=== PATIENT | female | born 1995 | race Two or more races ===

== ENCOUNTER 2016-07-10 15:58 | Inpatient (IN) | payer OTHER ==
--- NOTE | ~2016-07-10 | EKG ---
PATIENT: LILLY POSADAS UNIT #: [id number] Ventricular Rate: 112 BPM Atrial Rate: 112 BPM P-R Interval: 132 ms QRS Duration: 68 ms Q-T Interval: 302 ms QTC Calculation(Bezet): 412 ms P Moran: 57 degrees Calculated R Moran: 29 degrees Calculated T Moran: 16 degrees Diagnosis Line: Sinus tachycardia Diagnosis Line: Otherwise normal ECG Diagnosis Line: When compared with ECG of 05-JUN-2016 14:32, Diagnosis Line: No significant change was found Diagnosis Line: Confirmed by MACO GRIJALVA MD ([id number]) on Diagnosis Line: 07/12/2016 2:28:19 PM INTERPRETING MD: RUDI LUCIA
--- NOTE | ~2016-07-10 | CR63 ---
[facility] A Service of [facility] RADIOLOGY TEXT RESULTS PATIENT: LILLY POSADAS LOCATION: [facility] 473- : 95 UNIT #: [id number] AGE: [address]: Sherie Payton MD SEX: F ORDER DR: [id number] [id number] I MR#: [id number] Acc #: [id number] NAME: LILLY POSADAS : 1995 SEX: F STUDY DATE/TIME: 07/10/2016 20:03 UNIT: SEDOF ROOM: [facility] STUDY DESCRIPTION: CR Chest 2 View Attending Physician: Shelly Barrera M.D. Ordering Physician: Xochitl Sosa A.P.R.N. Primary Care Physician: Primary Care Physician No MEDICAL IMAGING REPORT This report is preliminary unless electronic signature is present. EXAM Chest x-ray HISTORY Fever, cough, congestion, chest pain for the past 2 days. TECHNIQUE 2 views of the chest were obtained. FINDINGS Bony structures are unremarkable. The heart and mediastinum have a normal configuration. The left lung is clear. There is an infiltrate anteriorly in the right upper lobe. Given the history this likely represents pneumonia. No pleural fluid is seen. Vascular markings are normal. IMPRESSION Infiltrate noted anterior segment right upper lobe consistent with pneumonia. Recommend radiographic followup until healing and clearing. The left lung is clear. Dictated by... Duglas Villela M.D. THIS IS AN ELECTRONICALLY VERIFIED REPORT Duglas Villela M.D. at 07/12/2016 11:02 AM RLF/jas TD: 07/11/2016 11:27 JOB #: [id number] [facility] A Service of [facility] RADIOLOGY TEXT RESULTS PATIENT: LILLY POSADAS LOCATION: [facility] : 95 UNIT #: [id number] AGE: [address]: Sherie Payton MD SEX: F ORDER DR: MEDICAL IMAGING REPORT Page 1 of 1
--- NOTE | ~2016-07-10 | HP ---
Unit #: [id number] #: [id number] Patient: LILLY POSADAS [id number] [address] [address] [id number] I MR#: [id number] NAME: LILLY POSADAS ROOM: [facility] Age: 20 Sex: F Admission Date: 07/11/2016 : 1995 Attending Physician: Sherie Payton M.D. Primary Care Physician: No Primary Care Physician HISTORY AND PHYSICAL CHIEF COMPLAINT Pneumonia. HISTORY This pleasant 20-year-old female with SLE was transferred from [facility] for pneumonia. The patient states that she was well until 3 days prior to admission when she developed a headache, upper respiratory tract symptoms of head congestion and stopped up ears. Then began to experience a deep cough productive of green sputum, right pleuritic chest pain, mild shortness of breath and fevers. Nausea and vomiting yesterday. She was seen at [facility] ER where a chest x-ray does show right upper lobe pneumonia. She was treated with Motrin, Phenergan, Tylenol, bolused with IV fluids, given Rocephin, and Zithromax was planned. She has not been admitted for the past 3 months. She does, however, take CellCept for her lupus. PAST MEDICAL HISTORY 1. Admission for hypotension 04/12/2016 possibly related to infectious etiology of uncertain source or adrenal insufficiency. The patient had stopped taking her prednisone around that time. 2. 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 The patient takes CellCept. She no longer takes prednisone. 3. Admission to [facility] 02/2016 for GC bacteremia, lupus flare, acute on chronic kidney disease. 4. Chronic anemia. ALLERGIES None. HOME MEDICATIONS Iron, vitamin D, CellCept 500 mg 2 tablets b.i.d. FAMILY HISTORY Negative for lupus. SOCIAL HISTORY The patient lives with her mother. She is a lifelong nonsmoker. Does not drink alcohol or use illicit drugs. States that her last menstrual period was 3 years ago. REVIEW OF SYSTEMS Unit #: [id number] #: [id number] Patient: LILLY POSADAS Nausea, vomiting, cough, upper respiratory symptoms, SLE and above-mentioned complications, chronic anemia. All other systems were reviewed and are negative. PHYSICAL EXAMINATION GENERAL: Pleasant, 20-year-old female who is somewhat ill appearing. VITAL SIGNS: Temperature 98.3, pulse 107, respirations 16, blood pressure 133/82, O2 saturation 97% on room air. HEENT: Eyes-PERRLA. Extraocular muscles are intact. Pharynx is benign. NECK: Supple without adenopathy or thyromegaly. CHEST: Fairly clear. CARDIAC: Slightly tachy. S1, S2, without S3, S4 or murmur. ABDOMEN: Bowel sounds are present. No hepatosplenomegaly, tenderness or masses. EXTREMITIES: Without edema. SKIN: Skin reveals somewhat raised erythematous rash, particularly over the malar junction and cheeks bilaterally and over the hands. This rash is actually improved from when I saw the patient in March. NEUROLOGIC: The patient is awake, alert, oriented. Cranial nerves are intact. Equal strength throughout. DIAGNOSTIC STUDIES ADMISSION LABS: Hematocrit is 25.1, which is fairly stable. Normal MCV, white count. Platelet count is 122. SMA-12 - CO2 21, calcium 7, protein 5.9, albumin 2.8. Beta HCG negative. Influenza serology, strep screen negative. Urinalysis - 1+ leukocyte esterase, 10-25 red cells, 50-100 white cells, moderate squamous epithelial cells, making this a poor specimen. IMAGING: Chest x-ray - Right upper lobe pneumonia. ASSESSMENT 1. Pneumonia in this patient who is somewhat immunocompromised. 2. Sinus tachycardia due to illness. 3. SLE with polyarthritis, cutaneous vasculitis and lupus nephritis, on CellCept. 4. Questionable UTI. PLANS 1. Cefepime and Levaquin, given that the patient is immunocompromised. Will give one dose of vancomycin pending cultures. 2. Florastor. 3. IV fluids and supportive treatment. 4. SCDs for DVT prophylaxis. 5. Hold CellCept while acutely ill. Dictated by Shelly Barrera M.D. AML/db TD: 07/11/2016 10:14 JOB #: [id number] Unit #: [id number] #: [id number] Patient: LILLY POSADAS HISTORY AND PHYSICAL X Shelly Barrera MD X HISTORY AND PHYSICAL
--- NOTE | ~2016-07-10 | DS ---
Unit #: [id number] #: [id number] Patient: LILLY POSADAS [id number] [address] [address] [id number] Maxi MR#: [id number] NAME: LILLY POSADAS ROOM: [facility] Age: 20 Sex: F Admission Date: 07/11/2016 : 1995 Discharge Date: 07/13/2016 Attending Physician: Sherie Payton M.D. Primary Care Physician: Primary Care Physician No DISCHARGE SUMMARY PRINCIPAL DIAGNOSES 1. Right upper lobe pneumonia. 2. Mild hypocalcemia. 3. Persistent sinus tachycardia with normal TSH. 4. Systemic lupus erythematosus with history of lupus vasculitis and lupus nephritis. 5. Chronic immunosuppression. 6. Chronic thrombocytopenia. 7. Acute on chronic iron deficiency anemia. Discharge hemoglobin 8.0. 8. Moderate protein malnutrition. CONSULTANTS None. PROCEDURES Chest x-ray on 07/10/2016 with infiltrate in the right upper lobe consistent with pneumonia. CLINICAL HISTORY AND HOSPITAL COURSE Ms. Posadas is a very nice 20-year-old female, who presents to emergency department with cough and shortness of breath. She also having nausea and vomiting. Chest x-ray revealed right upper lobe pneumonia. The patient was subsequently admitted. Due to patient's recurrent hospitalizations and chronic immunosuppression, she was given a single dose of vancomycin in addition to be continued on Levaquin and cefepime. She clinically improved over the next several days. All associated elevated temperatures resolved and cough improved. Physical exam also improved. No causative organism was obtained. I am going to continue her on empiric Levaquin upon discharge for another 7 days. I reinitiate immunosuppression. The patient was found to be mildly hypocalcemic and I will place her on calcium supplementation upon discharge. The patient had persistent sinus tachycardia. I have seen the patient in the past and she also had sinus tachycardia at that time and we are going to place her on a low-dose of metoprolol, which she will continue as an outpatient and she is agreeable. The patient also has chronic iron deficiency anemia, but hemoglobin here is overall remained stable. I am going to maintain her iron supplementation upon discharge. Unit #: [id number] #: [id number] Patient: LILLY POSADAS DISCHARGE CONDITION Stable. DISCHARGE STATUS Discharged to home. DISCHARGE MEDICATIONS Levaquin 750 mg p.o. for another one week, Flonase 0.05% nasal spray two sprays per nostril daily, metoprolol tartrate 25 mg b.i.d. with 2 refills given; ferrous gluconate 324 mg p.o. daily with 1 refill given, CellCept 500 mg two tablets b.i.d., Os-Jose 500+ D one tablet b.i.d., vitamin D at home dose. DISCHARGE INSTRUCTIONS The patient was instructed to follow regular diet. She can increase her activity as tolerated. FOLLOWUP The patient will follow up with her primary care physician in 1 week. Of course, she can call me if she develops any fever, worsening cough, following discharge. Dictated by... Sherie Payton M.D. FLOR/vikram TD: 07/14/2016 00:57 JOB #: [id number] DISCHARGE SUMMARY Page 1 of 1 X Sherie Payton MD X DISCHARGE SUMMARY
[~2016-07-10 15:58] MED LIST: ANTIVERT PO; ATARAX PO; CELLCEPT250 MG PO; CELLCEPT500 MG PO; FERRO-TIME325 MG PO; IMPLANON; IMPLANON68 MG/IMPL SQ; IRON1 TA1 PO; IRON1 TAB PO; MEDROL4 MG/DOSE- PO; PLAQUENIL200 MG PO; TRIAMCINOLONE AC1 GM TOP; TYLENOL #3 PO; VITAMIN D1000 UNI2 PO; VOLTAREN50 MG PO
[2016-07-10 16:06] LABS: URINE SOURCE CLEAN CATCH
[2016-07-10 16:08] LABS: INFLUENZA A NEG (NEG); INFLUENZA B NEG (NEG)
[2016-07-10 16:08] LABS: URINE APPEARANCE CLEAR; URINE BILIRUBIN NEG (NEG); URINE BLOOD 2+ (NEG); URINE COLOR YELLOW; URINE GLUCOSE NEG (NORM); URINE KETONE NEG (NEG); URINE LEUKOCYTE ESTERASE 1+ (NEG); URINE NITRATE NEG (NEG); URINE PH 7.5 (5-8); URINE PROTEIN 2+ (NEG); URINE UROBILINOGEN 0.2 MG/DL (NORM)
[2016-07-10 16:13] LABS: MICRO INDICATED? YES
[2016-07-10 16:15] LABS: CULTURE INDICATED? YES; URINE BACTERIA NEG (NEG); URINE SQUAMOUS EPITHELIAL CELL MODERATE /[HPF]; URINE WBC 50-100 /[HPF] (0-5)
[2016-07-10 20:42] LABS: BASOPHIL% 0.4 % (0-2.5); HEMATOCRIT 25.1 % (35.0-45.0); HEMOGLOBIN 8.3 gm/dL (12.0-16.0); LYMPHOCYTE# 0.8 X10e3 (1.0-3.5); LYMPHOCYTE% 13.1 % (17.0-45.0); MEAN CELL VOLUME 83.3 FL (83-96); MEAN CORPUSCULAR HEMOGLOBIN 27.6 PG (28-34); MEAN CORPUSCULAR HGB CONC 33.1 g/dL (30-36); MEAN PLATELET VOLUME 9.1 FL (6.5-11.5); MONOCYTE# 0.2 X10e3 (0-1.0); MONOCYTE% 2.5 % (3.0-12.0); NEUTROPHIL# 5.4 X10e3 (1.5-7.1); PLATELET COUNT 122 X10e3 (140-420); RED BLOOD COUNT 3.02 X10e (3.90-5.30); RED CELL DISTRIBUTION WIDTH 17.1 % (11.0-15.5); WHITE BLOOD COUNT 6.5 X10e3 (4.0-10.5)
[2016-07-10 20:44] LABS: DIFF IND NO
[2016-07-10 20:58] LABS: ALBUMIN SERUM 2.8 g/dL (3.5-5.0); ALKALINE PHOSPHATASE 48 U/L (32-92); ALT (SGPT) 8 U/L (10-40); AST (SGOT) 18 U/L (10-42); BILIRUBIN,TOTAL 0.5 mg/dL (0.2-2.0); BLOOD UREA NITROGEN 11 mg/dL (9-23); BUN/CREATININE RATIO 12.22; CARBON DIOXIDE 21 mmol/L (22-31); CHLORIDE 109 mmol/L (100-111); CREATININE SERUM 0.9 mg/dL (0.6-1.4); GLOM FILT RATE Estimated ABOVE60 mL/min (>60); GLUCOSE FASTING 108 mg/dL (70-110); POTASSIUM 3.7 mmol/L (3.5-5.1); PROTEIN TOTAL SERUM 5.9 g/dL (6.0-8.3); SODIUM 136 mmol/L (135-145)
[2016-07-11 03:25] LABS: BASOPHIL% 0.2 % (0-2.5); HEMOGLOBIN 8.1 gm/dL (12.0-16.0); LYMPHOCYTE# 0.5 X10e3 (1.0-3.5); LYMPHOCYTE% 9.5 % (17.0-45.0); MEAN CELL VOLUME 84.1 FL (83-96); MEAN CORPUSCULAR HEMOGLOBIN 28.2 PG (28-34); MEAN CORPUSCULAR HGB CONC 33.5 g/dL (30-36); MEAN PLATELET VOLUME 9.5 FL (6.5-11.5); MONOCYTE# 0.2 X10e3 (0-1.0); MONOCYTE% 3.3 % (3.0-12.0); NEUTROPHIL# 4.7 X10e3 (1.5-7.1); PLATELET COUNT 103 X10e3 (140-420); RED BLOOD COUNT 2.86 X10e (3.90-5.30); RED CELL DISTRIBUTION WIDTH 17.1 % (11.0-15.5); WHITE BLOOD COUNT 5.5 X10e3 (4.0-10.5)
[2016-07-11 03:26] LABS: DIFF IND NO
[2016-07-11 03:55] LABS: BLOOD UREA NITROGEN 14 mg/dL (9-23); CALCIUM SERUM 6.8 mg/dL (8.4-10.2); CARBON DIOXIDE 20 mmol/L (22-31); CHLORIDE 112 mmol/L (100-111); CREATININE SERUM 0.8 mg/dL (0.6-1.4); GLOM FILT RATE Estimated ABOVE60 mL/min (>60); GLUCOSE FASTING 95 mg/dL (70-110); POTASSIUM 3.8 mmol/L (3.5-5.1); SODIUM 137 mmol/L (135-145)
[2016-07-12 04:37] LABS: HEMATOCRIT 23.1 % (35.0-45.0); HEMOGLOBIN 7.6 gm/dL (12.0-16.0); MEAN CELL VOLUME 84.1 FL (83-96); MEAN CORPUSCULAR HEMOGLOBIN 27.6 PG (28-34); MEAN CORPUSCULAR HGB CONC 32.8 g/dL (30-36); MEAN PLATELET VOLUME 9.1 FL (6.5-11.5); RED BLOOD COUNT 2.75 X10e (3.90-5.30); RED CELL DISTRIBUTION WIDTH 17.4 % (11.0-15.5); WHITE BLOOD COUNT 7.9 X10e3 (4.0-10.5)
[2016-07-12 04:54] LABS: BLOOD UREA NITROGEN 11 mg/dL (9-23); BUN/CREATININE RATIO 13.75; CREATININE SERUM 0.8 mg/dL (0.6-1.4); GLOM FILT RATE Estimated ABOVE60 mL/min (>60); GLUCOSE FASTING 83 mg/dL (70-110)
[2016-07-12 04:55] LABS: CALCIUM SERUM 7.3 mg/dL (8.4-10.2); CARBON DIOXIDE 21 mmol/L (22-31); CHLORIDE 116 mmol/L (100-111); POTASSIUM 3.6 mmol/L (3.5-5.1); SODIUM 135 mmol/L (135-145)
[2016-07-12 09:27] LABS: PROCALCITONIN 8.61 NG/ML
[2016-07-13 03:47] LABS: BASOPHIL% 0.4 % (0-2.5); EOSINOPHIL% 0.1 % (0.0-7.0); HEMATOCRIT 24.4 % (35.0-45.0); LYMPHOCYTE# 1.5 X10e3 (1.0-3.5); MEAN CELL VOLUME 84.7 FL (83-96); MEAN CORPUSCULAR HEMOGLOBIN 27.7 PG (28-34); MEAN CORPUSCULAR HGB CONC 32.7 g/dL (30-36); MEAN PLATELET VOLUME 9.1 FL (6.5-11.5); MONOCYTE# 0.3 X10e3 (0-1.0); MONOCYTE% 6.8 % (3.0-12.0); NEUTROPHIL# 3.2 X10e3 (1.5-7.1); NEUTROPHIL% 63.7 % (40-75); PLATELET COUNT 130 X10e3 (140-420); RED BLOOD COUNT 2.89 X10e (3.90-5.30); RED CELL DISTRIBUTION WIDTH 17.4 % (11.0-15.5)
[2016-07-13 03:48] LABS: DIFF IND NO
[2016-07-13] MEDS ORDERED: CALCIUM 500 +1 EAC5 PO (09:02)
[2016-07-13] MEDS ORDERED: FLONASE 0.05% N16 G1 (09:04)
[2016-07-13] MEDS ORDERED: LEVAQUIN750 M1 PO (09:05)
[2016-07-13] MEDS ORDERED: LOPRESSOR PO (09:05)
== END 2016-07-13 11:57 | disposition home or self-care (01) | DRG 194 ==
LOC: SED 15:58 → C4C 07-11 00:20
PROVIDERS: Emergency Medicine; Internal Medicine; Nurse Practitioner
DX: J18.9 Pneumonia, unspecified organism (principal); E44.0 Moderate protein-calorie malnutrition; M32.14 Glomerular disease in systemic lupus erythematosus; D69.6 Thrombocytopenia, unspecified; M32.9 Systemic lupus erythematosus, unspecified; E83.51 Hypocalcemia; R00.0 Tachycardia, unspecified; L95.9 Vasculitis limited to the skin, unspecified; D50.9 Iron deficiency anemia, unspecified; Z79.899 Other long term (current) drug therapy
CPT/HCPCS: 36415; 71020; 80048; 80053; 81003; 82308; 82607; 83540; 83550; 83605; 84443; 84703; 85025; 85027; 87086; 87651; 87804; 93005; 96361; 96365; 99285; J0456; J0610; J0692; J0696; J1956; J2405; J2550; J3370

== ENCOUNTER 2017-01-07 08:41 | Inpatient (IN) | payer OTHER ==
[~2017-01-07] VITALS: Ht 154.9 cm; Wt 68.4 kg
--- NOTE | ~2017-01-07 | US6 ---
[facility] A Service of [facility] RADIOLOGY TEXT RESULTS PATIENT: LILLY POSADAS LOCATION: [facility] 568-01 : 95 UNIT #: [id number] AGE: [address]: Oralia Davila MD SEX: F ORDER DR: [id number] [place], [place] [address] [id number] I MR#: [id number] Acc #: [id number] NAME: LILLY POSADAS : 1995 SEX: F STUDY DATE/TIME: 01/08/2017 10:13 UNIT: [facility] ROOM: [facility] STUDY DESCRIPTION: US Abdominal Limited Attending Physician: Oralia Davila M.D. Ordering Physician: Oralia Davila M.D. Primary Care Physician: Primary Care Physician No MEDICAL IMAGING REPORT This report is preliminary unless electronic signature is present EXAM Right upper quadrant ultrasound 01/08/2017 INDICATION Hepatitis, midline abdominal pain 2 days. TECHNIQUE Sonographic imaging of the right upper quadrant was performed. Correlation is made with CT 01/07/2017. FINDINGS Visualized pancreas unremarkable. There is perihepatic ascites. Periportal edema demonstrated on prior CT not well delineated on ultrasound. No focal liver mass or distinct intrahepatic ductal dilatation. The right kidney is nonobstructed measuring 12.6 cm long axis. There is cholelithiasis, the largest stone within the gallbladder measures up to about 2.8 cm. The gallbladder demonstrates borderline wall thickness at 3-[address] imaging findings of periportal edema suggestive of hepatitis, this could also account for the borderline gallbladder wall thickening. No sonographic Batista's sign was described by the technologist. No distinct pericholecystic fluid. If clinical concern for acute cholecystitis persists, nuclear medicine HIDA scan could be pursued for further assessment. Extrahepatic common bile duct measures up to about 5-6 mm, in the top normal range. IMPRESSION 1. Cholelithiasis. The gallbladder wall is borderline in thickness at 3-4 mm. Based upon prior CT, the gallbladder wall thickness could relate to hepatitis. Correlate with liver enzymes. No distinct [facility] A Service of [facility] RADIOLOGY TEXT RESULTS PATIENT: LILLY POSADAS LOCATION: [facility] 568-01 : 95 UNIT #: [id number] AGE: [address]: Oralia Davila MD SEX: F ORDER DR: additional ultrasound evidence of acute cholecystitis at this time. No sonographic Batista's sign. 2. Extrahepatic common bile duct is top normal in diameter between 5-6 mm. 3. Perihepatic ascites. 4. Limited evaluation of the pancreas. Dictated by... Stephen Carver M.D. THIS IS AN ELECTRONICALLY VERIFIED REPORT Stephen Carver M.D. at 01/09/2017 7:48 AM ANJUM/lavinia TD: 01/09/2017 07:29 JOB #: [id number] MEDICAL IMAGING REPORT Page 1 of 1 COPY
--- NOTE | ~2017-01-07 | CR72 ---
[facility] A Service of [facility] RADIOLOGY TEXT RESULTS PATIENT: LILLY POSADAS [facility]ATION: [facility] 568 : 95 UNIT #: [id number] AGE: [address]: Oralia Davila MD SEX: F ORDER DR: [id number] [facility] [place], [place] [address] [id number] I MR#: [id number] Acc #: [id number] NAME: LILLY POSADAS : 1995 SEX: F STUDY DATE/TIME: 01/07/2017 12:04 UNIT: [facility] ROOM: [facility] STUDY DESCRIPTION: CR Chest Single View Portable Attending Physician: Oralia Davila M.D. Ordering Physician: Boris Wagner M.D. Primary Care Physician: Primary Care Physician No MEDICAL IMAGING REPORT This report is preliminary unless electronic signature is present EXAM Frontal chest, 01/07/2017 INDICATION 21-year-old female with fever. History of lupus. Symptoms began at 02:30 this morning. TECHNIQUE Frontal chest COMPARISON 07/10/2016 FINDINGS Cardiac silhouette is borderline in size. Vascularity unremarkable. Lung volumes are low. There is no effusion, dense consolidation or pneumothorax. Probable mild asymmetric atelectasis in the right lung. IMPRESSION Borderline cardiac size with low lung volumes and probable atelectasis in the right lung. No effusion or dense consolidation. Dictated by... Stephen Carver M.D. THIS IS AN ELECTRONICALLY VERIFIED REPORT Stephen Carver M.D. at 01/08/2017 3:03 PM Olman TD: 01/08/2017 09:33 JOB #: [id number] MEDICAL IMAGING REPORT [facility] A Service of [facility] RADIOLOGY TEXT RESULTS PATIENT: LILLY POSADAS [facility]: [facility] 568 : 95 UNIT #: [id number] AGE: [address]: Oralia Davila MD SEX: F ORDER DR: Page 1 of 1 COPY
--- NOTE | ~2017-01-07 | HP ---
Unit #: [id number] #: [id number] Patient: LILLY POSADAS [id number] [place], [place] [address] [id number] I MR#: [id number] NAME: LILLY POSADAS ROOM: 50650 Age: 21 Sex: F Admission Date: 01/07/2017 : 1995 Attending Physician: Oralia Davila M.D. Primary Care Physician: No Primary Care Physician HISTORY AND PHYSICAL CHIEF COMPLAINT Chief complaint is nausea, vomiting. HPI The patient is a 21-year-old female with past medical history of lupus, on chronic immunosuppression, who presented to the emergency department for evaluation of the above. The patient states that she was in her usual state of health until the morning of admission when she developed nausea, vomiting, diarrhea and abdominal pain. She states that pain is in the mid and upper abdomen. She describes it as "sharp." It has been fairly constant in nature. There are no exacerbating or alleviating factors. She denies any similar pain. She has had 4 bouts of nonbloody emesis, as well as 4 bouts of nonbloody diarrhea. She denies any fever or chills. No abnormal foods or recent travel. No antibiotics. In the emergency department, a CT of the abdomen and pelvis was done and showed findings concerning for enteritis. Ascites was also noted, as well as possible hepatitis. She was given 2 liters of normal saline, as well as 4 mg of Zofran, 12.5 mg of Phenergan, Flagyl and Levaquin. She is being admitted to [facility] for evaluation and further treatment. PAST MEDICAL HISTORY 1. Admission to [facility] July 11 through the 2016 for pneumonia. 2. Systemic lupus erythematosus with vasculitis and nephritis, followed by Dr. Liz (?), maintained on Plaquenil and prednisone. 3. Chronic thrombocytopenia. PAST SURGICAL HISTORY 1. . 2. Kidney biopsy. SOCIAL HISTORY The patient lives with her mom. There is no tobacco or alcohol use. FAMILY HISTORY There is no history of lupus. No diabetes. ALLERGIES Zofran. Unit #: [id number] #: [id number] Patient: LILLY POSADAS HOME MEDICATIONS Home medications include prednisone, Plaquenil and iron. REVIEW OF SYSTEMS A complete review of systems is negative except as indicated in the HPI. The patient denies any change in her weight. She has never had endoscopy. DIAGNOSTIC TESTS IMAGING: CT of the abdomen and pelvis shows findings concerning for enteritis. Periportal edema is also noted. Possible changes concerning for hepatitis. Uncomplicated cholelithiasis is also noted. There is retroperitoneal adenopathy that is slightly larger when compared to prior, likely reactive in etiology. LABORATORY: Urinalysis notable for 2+ protein, 4+ blood with 10-25 red blood cells. Urine tox screen is negative. Beta HCG is negative. Complete blood count notable for hemoglobin, hematocrit of 7.7 and 23.7 respectively. Comprehensive metabolic panel notable for chloride of 116. Calcium is 7.6 but corrects when albumin of 2.8 is accounted for. Lipase is 25. Total protein 5.6. PHYSICAL EXAM VITAL SIGNS: Temperature is 97.7, pulse 114, respirations 16, blood pressure 134/84, oxygen saturation 99% on room air. Temperature did reach as high as 101.5. GENERAL: The patient is sleeping but wakes to voice. HEENT: The head is atraumatic. Mucous membranes are dry. NECK: Supple. Trachea is midline. CARDIOVASCULAR: Cardiovascular is regular rate and rhythm. RESPIRATORY: Lungs are clear to auscultation bilaterally with no increased work of breathing. ABDOMEN: Abdomen is soft. She is tender to palpation in the epigastric area. Bowel sounds are present in all 4 quadrants. EXTREMITIES: Extremities are nontender with no pedal edema. NEURO: The patient is awake and alert. She follows commands. PSYCH: Mood and affect are normal. The patient is cooperative. SKIN: Skin of examined areas is warm and dry. ASSESSMENT The patient is a 21-year-old female with: 1. Acute enteritis. The patient received Levaquin and Flagyl in the emergency department. 2. Sepsis with pending lactic acid. 3. Acute on chronic anemia. The patient's hemoglobin is 7.7. It was 8 on July 13, 2016. 4. Possible hepatitis. The patient denies ever being told she has hepatitis. 5. Ascites noted on CT. 6. Lupus, maintained on prednisone and Plaquenil. 7. Retroperitoneal lymphadenopathy. 8. Uncomplicated cholelithiasis. PLAN 1. Admit to intermediate level. 2. Normal saline at 75 mL an hour. 3. NPO except ice chips and medications. 4. Blood cultures x2. 5. Stool studies, including ova and parasites, C. diff., culture and Unit #: [id number] #: [id number] Patient: LILLY POSADAS sensitivity. 6. Levaquin and Flagyl pending further workup. 7. Sepsis protocol. 8. Hemoglobin, hematocrit q.6 hours. Will plan to transfuse for hemoglobin less than 7. 9. Consult Dr. Bertrand regarding enteritis. 10. Hepatitis panel. 11. Right upper quadrant ultrasound. 12. Iron studies, B12 and folate. 13. EKG if not done. 14. Repeat labs in the morning. 15. Phenergan p.r.n. 16. SCDs for DVT prophylaxis. Dictated by Valorie Marmolejo/bipin TD: 01/07/2017 14:23 JOB #: [id number] HISTORY AND PHYSICAL Page 1 of 1 X Oralia Davila MD X HISTORY AND PHYSICAL
--- NOTE | ~2017-01-07 | DS ---
Unit #: [id number] #: [id number] Patient: LILLY POSADAS [id number] [address] [address] [id number] I MR#: [id number] NAME: LILLY POSADAS ROOM: 568 Age: 21 Sex: F Admission Date: 01/07/2017 : 1995 Discharge Date: Attending Physician: Catarina Gruber M.D. Primary Care Physician: No Primary Care Physician DISCHARGE SUMMARY DISCHARGE DIAGNOSES 1. Acute enteritis, positive for campylobacter antigen. 2. B12 deficiency. 3. Moderate protein malnutrition. 4. Systemic lupus erythematosus with vasculitis and nephritis on Plaquenil and prednisone. 5. Chronic thrombocytopenia. 6. Sepsis, present on admission. 7. Acute on chronic iron-deficiency anemia. 8. Possible hepatitis, hepatitis panel is pending at the time of dictation. 9. Ascites noted on CT. 10. History of retroperitoneal lymphadenopathy. 11. Uncomplicated cholelithiasis. 12. Metabolic acidosis. 13. Hypocalcemia. 14. Vitamin B12 deficiency. CONSULTATIONS 1. Dr. Bertrand 2. Dr. Castro. PROCEDURE None. DIAGNOSTIC STUDIES LABORATORY: Hemoglobin 9.8, sodium 139, potassium 3.8, creatinine 1. AST 17, ALT 7, alkaline phosphatase 27, albumin 2.5. WBC 5, hemoglobin 10.2, platelets 144,000. Stool: Clostridium difficile negative. Campylobacter antigen positive. Shiga toxin negative. Blood cultures show skin contamination. Vitamin B12 level is 145. Ferritin 9. Folate 15.3. Lactic acid 1.1. Urinalysis: No infection. Urine drug screen negative. IMAGING: Ultrasound of the abdomen shows cholelithiasis. Gallbladder wall is borderline in thickness. Based upon prior CT, gallbladder thickness could be replaced to hepatitis. CT of the abdomen and pelvis shows ascites with wall thickening, inflammatory changes in small bowel loops, fluid distention of colon characteristic of diarrhea present, uncomplicated cholelithiasis present. ALLERGIES Zofran. Unit #: [id number] #: [id number] Patient: LILLY POSADAS DISCHARGE MEDICATIONS 1. Prednisone 20 mg p.o. b.i.d. 2. Plaquenil 200 p.o. b.i.d. 3. Ferrous sulfate 324 p.o. daily. 4. Vitamin B12 at 1000 mcg subcutaneous daily for seven days followed by weekly. 5. Augmentin 875 p.o. b.i.d. for five days. Any added antibiotics as per infectious disease. HOSPITALIZATION COURSE A 21 year old admitted because of diarrhea. Acute infectious enteritis with a positive campylobacter antigen. Patient was on Levaquin, Flagyl and erythromycin. Discussed with Dr. Bertrand. Patient can have EGD and colonoscopy as an outpatient. Patient can be discharged on Augmentin for five days. Infectious disease is also seeing the patient, waiting on their input on antibiotic at discharge. Will discharge the patient after seen by infectious disease. Vitamin B12 deficiency: The patient received IM vitamin B12 injections. I am going to give her prescription for subcutaneous injections. I will also give syringes for that. Moderate protein malnutrition, likely from malabsorption. Sepsis present on admission, likely from enteritis, resolved. History of hepatitis: Currently liver enzymes normal. Ultrasound shows cholelithiasis. Patient asymptomatic for any gallbladder disease. Systemic lupus erythematosus: Follow with her family physician for followup. PLAN The patient will be discharged home after seen by infectious disease. 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 I gave work note. Follow with family physician in one week time. Follow with Dr. Bertrand in one week time. Discharge time taken is 32 minutes. Dictated by... Valorie Rae/monisha TD: 01/09/2017 17:18 JOB #: [id number] Unit #: [id number] #: [id number] Patient: LILLY POSADAS DISCHARGE SUMMARY Page 1 of 1 X Catarina Gruber MD X DISCHARGE SUMMARY
--- NOTE | ~2017-01-07 | EKG ---
PATIENT: LILLY POSADAS UNIT #: [id number] Ventricular Rate: 108 BPM Atrial Rate: 108 BPM P-R Interval: 120 ms QRS Duration: 72 ms Q-T Interval: 322 ms QTC Calculation(Bezet): 431 ms P [place]: 59 degrees Calculated R [place]: 23 degrees Calculated T [place]: 3 degrees Diagnosis Line: Sinus tachycardia Diagnosis Line: Otherwise normal ECG Diagnosis Line: Diagnosis Line: Confirmed by GIANNA HONG MD ([id number]) on 01/08/2017 Diagnosis Line: 3:44:59 PM INTERPRETING MD: GELY LUCIA
--- NOTE | ~2017-01-07 | CT2 ---
[facility] A Service of [facility] & [facility] / [facility] RADIOLOGY TEXT RESULTS PATIENT: LILLY POSADAS LOCATION: [facility] 568-01 : [birth year] UNIT #: [id number] AGE: [address]: Oralia Davila MD SEX: F ORDER DR: [id number] [facility] [address] [place], [place] [address] [id number] MR#: [id number] Acc #: [id number] NAME: LILLY POSADAS : 1995 SEX: F STUDY DATE/TIME: 01/07/2017 11:37 UNIT: [facility] ROOM: [facility] STUDY DESCRIPTION: CT Abd and Pelv W Cont Attending Physician: Oralia Davila M.D. Ordering Physician: Boris Wagner M.D. Primary Care Physician: No Primary Care Physician MEDICAL IMAGING REPORT This report is preliminary unless electronic signature is present EXAM Abdomen and pelvis CT with contrast 01/07/2017 INDICATION Vomiting since 2:30 this morning. History of lupus, anemia, asthma renal biopsy. TECHNIQUE Contrast-enhanced abdomen and pelvis CT was performed. This CT exam was performed with one or more of the following radiation dose reduction techniques: Automatic exposure control, adjustment of mA and/or kV according to patient size, and iterative reconstruction. COMPARISON 06/05/2016 FINDINGS Occluded lung bases are clear. No effusion. Aorta demonstrates no aneurysm or dissection. Spleen unremarkable. Adrenal glands and pancreas unremarkable. There is cholelithiasis without distinct CT evidence of acute cholecystitis. There is periportal edema, new compared to the prior study. Differential includes sequela of hepatitis or vigorous fluid resuscitation. There is abdominal and a small amount of pelvic ascites, new compared to the prior study. Equivocal gallbladder wall thickening, nonspecific, and can also be seen in the setting of hepatitis. No intra- or extrahepatic biliary ductal dilatation. Kidneys unremarkable. Stomach decompressed. Indeterminate lymph nodes in the retroperitoneum stable to slightly larger. Index node to the left of midline measures 12 mm, previously 9 mm short axis. Please note additional aortocaval nodes are present also stable to slightly larger visually compared to the prior study. CT PELVIS: Bladder unremarkable. There is no adnexal mass. There is air STS. [facility] A Service of [facility] RADIOLOGY TEXT RESULTS PATIENT: LILLY POSADAS LOCATION: [facility] 568-01 : [birth year] UNIT #: [id number] AGE: [address]: Oralia Davila MD SEX: F ORDER DR: and fluid in the colon most characteristic of diarrhea. The appendix is normal. There is wall thickening and inflammatory change of small bowel loops in the right mid abdomen, midline abdomen, and extending into the right lower quadrant. The affected bowel loops demonstrate some degree of narrowing of the small bowel lumen with rim enhancement. Imaging features are nonspecific but suggestive of a severe small bowel enteritis. This could potentially represent sequela of the patient's history of lupus. Inflammatory bowel disease such as Crohn's disease also in the differential. Probable reactive inguinal lymph nodes similar to the prior study although a few may also be slightly larger than on the prior exam as well. There is no distinct evidence of bowel obstruction, pneumatosis, or free air. Pelvic sidewall adenopathy is similar to the prior study with index pelvic sidewall nodes measuring 13 mm on the right and 15 mm on the left. No suspicious bone lesion. IMPRESSION 1. Interval development of ascites in the abdomen and pelvis with wall thickening and inflammatory change of small bowel loops primarily appearing to be involving the ileum extending to the terminal ileum. Findings suggest small bowel enteritis on an inflammatory or infectious basis. Correlate with any history of Crohn's disease. At this point, no pneumatosis, free air, or distinct bowel obstruction. Appendix normal. 2. Fluid distension of the colon characteristic of diarrhea. 3. There has been interval development of periportal edema within the liver. This may reflect hepatitis or sequela of vigorous fluid resuscitation. 4. Uncomplicated cholelithiasis. No distinct CT evidence of acute cholecystitis at this time. This could be further evaluated with ultrasound if clinically desired or warranted. 5. Adenopathy in the retroperitoneum extending into the pelvis. Similar findings on the prior study although a few of the nodes appear slightly larger visually and objectively. These may be reactive but should be correlated clinically. Attention on follow up recommended. Dictated by... Stephen Carver M.D. THIS IS AN ELECTRONICALLY VERIFIED REPORT Stephen Carver M.D. at 01/08/2017 2:54 PM Bull TD: 01/08/2017 09:13 JOB #: [id number] MEDICAL IMAGING REPORT Page 1 of 1 COPY
--- NOTE | ~2017-01-07 | CO ---
Unit #: [id number] #: [id number] Patient: LILLY POSADAS [id number] [address] [address] [id number] MR#: [id number] NAME: LILLY POSADAS ROOM: 568 Age: 21 Sex: F Admission Date: 01/07/2017 : 1995 Attending Physician: Catarina Gruber M.D. Primary Care Physician: No Primary Care Physician CONSULTATION REPORT REQUESTING PHYSICIAN FOR CONSULT Dr. Rodriguez REASON FOR CONSULTATION Positive blood cultures. HISTORY OF PRESENT ILLNESS Ms. Posadas is a pleasant 21-year-old female with a past medical history of lupus on chronic suppression with Plaquenil as well as prednisone who presented to the emergency department with complaint of nausea, vomiting, diarrhea and abdominal pain. 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 In the emergency room CT of the abdomen was done and showing concerning for enteritis. She had stool culture which was positive for Campylobacter antigen, negative for C. diff, and negative for Shiga toxin 1 and 2. No Salmonella or Shigella was isolated. We are now being consulted for 1 blood culture which was positive with coagulase negative Staph. The patient has been started on Zithromax, Levaquin as well as Flagyl. At this point, she reports that she is feeling a lot better since admission. The diarrhea is resolving. She is asking to go home. She denies any fevers or chills. States that she was not sure what exactly happened but now she is starting to feel a lot better. PAST MEDICAL HISTORY Significant for: 1. Admission from June of this year for pneumonia. 2. Systemic lupus with vasculitis. 3. Nephritics. 4. Chronic thrombocytopenia. PAST SURGICAL HISTORY 1. . 2. Kidney biopsy. SOCIAL HISTORY The patient lives with her mom. Denies any alcohol, tobacco or illicit drug use and patient also denies any IV drug use. FAMILY HISTORY Noncontributory. ALLERGIES Zofran. Unit #: [id number] #: [id number] Patient: LILLY POSADAS MEDICATIONS Current medications are reviewed. Current antibiotics include Flagyl, Levaquin and azithromycin. REVIEW OF SYSTEMS All negative except for those stated in the HPI. PHYSICAL EXAMINATION VITAL SIGNS: Temperature is 97.9, heart rate 83, respirations 16, blood pressure was 153/86. GENERAL: The patient is awake, alert and oriented and answers questions appropriately, in no apparent distress. HEAD, EARS, EYES, NOSE AND THROAT: Normocephalic. Pupils equal, round, reactive to light and accommodation. NECK: Supple. CARDIOVASCULAR: Regular rate. RESPIRATORY: Clear to auscultation, nonlabored. ABDOMEN: Soft. Mild tenderness. Positive bowel sounds. EXTREMITIES: Clean, dry and intact. NEURO: The patient is alert and oriented. SKIN: Dry and intact. ASSESSMENT 21-year-old female who is immunocompromised related to her lupus, on Plaquenil as well as prednisone, with acute enteritis. Just 1 blood cultures was drawn which was shown with coagulase negative Staph. The patient does not have any port, PICC line or any type of past surgical history that would put her at risk for bacteremia. Doubt that patient has true bacteremia and positive blood cultures most likely a contamination. Patient also has gotten better. Her fevers have resolved which are most likely related to the enteritis but it is resolved without any type of antibiotic treatment. At this point, will hold off on any additional antibiotics. May be able to discontinue Levaquin and Flagyl. Will discuss with Dr. Castro and will continue azithromycin as ordered for campylobacter. Patient will be seen by Dr. Castro later on today who will provide any additional recommendations. Dictated by... Emma Ng APRN for Valorie Jay TD: 01/09/2017 10:25 JOB #: [id number] Unit #: [id number] #: [id number] Patient: LILLY POSADAS CONSULTATION REPORT Page 1 of 1 X X CONSULTATION REPORT
[~2017-01-07 08:41] MED LIST changes: +CALCIUM 500 +1 EAC5 PO; +FLONASE 0.05% N16 G1; +LEVAQUIN750 M1 PO; +LOPRESSOR PO
[2017-01-07 09:51] LABS: BASOPHIL% 0.2 % (0-2.5); HEMATOCRIT 23.7 % (35.0-45.0); HEMOGLOBIN 7.7 gm/dL (12.0-16.0); LYMPHOCYTE# 0.7 X10e3 (1.0-3.5); LYMPHOCYTE% 13.9 % (17.0-45.0); MEAN CORPUSCULAR HEMOGLOBIN 28.1 PG (28-34); MEAN CORPUSCULAR HGB CONC 32.6 g/dL (30-36); MEAN PLATELET VOLUME 8.4 FL (6.5-11.5); MONOCYTE# 0.2 X10e3 (0-1.0); MONOCYTE% 3.7 % (3.0-12.0); NEUTROPHIL# 3.9 X10e3 (1.5-7.1); NEUTROPHIL% 82.2 % (40-75); PLATELET COUNT 160 X10e3 (140-420); RED BLOOD COUNT 2.76 X10e (3.90-5.30); RED CELL DISTRIBUTION WIDTH 15.7 % (11.0-15.5); WHITE BLOOD COUNT 4.8 X10e3 (4.0-10.5)
[2017-01-07 09:53] LABS: DIFF IND YES
[2017-01-07 10:00] LABS: ALBUMIN SERUM 2.8 g/dL (3.5-5.0); BILIRUBIN, DIRECT 0.1 mg/dL (0.0-0.2); BILIRUBIN,INDIRECT 0.2 mg/dL (0.0-0.9); BILIRUBIN,TOTAL 0.3 mg/dL (0.2-2.0); BUN/CREATININE RATIO 15.55; CALCIUM SERUM 7.6 mg/dL (8.4-10.2); CREATININE SERUM 0.9 mg/dL (0.6-1.4); GLOM FILT RATE Estimated 91.5 mL/min (>60); POTASSIUM 3.5 mmol/L (3.5-5.1); PROTEIN TOTAL SERUM 5.6 g/dL (6.0-8.3)
[2017-01-07 10:17] LABS: ANISOCYTOSIS SL; MICROCYTOSIS SL; OVALOCYTES PRESENT; PLATELET ESTIMATE NORMAL (NORMAL); POIKILOCYTOSIS SL; SCHISTOCYTES PRESENT
[2017-01-07 11:13] LABS: URINE SOURCE CLEAN CATCH
[2017-01-07 11:41] LABS: AMPHETAMINE NEG (NEG); BARBITURATES NEG (NEG); BENZODIAZEPINES NEG (NEG); COCAINE NEG (NEG); MARIJUANA NEG (NEG); OPIATES NEG (NEG); TRICYCLIC ANTIDEPRESSANTS NEG (NEG); U METHADONE NEG (NEG)
[2017-01-07 11:48] LABS: URINE APPEARANCE SL HAZY; URINE COLOR STRAW
[2017-01-07 11:49] LABS: URINE GLUCOSE NORM (NEG); URINE KETONE NEG (NEG); URINE LEUKOCYTE ESTERASE NEG (NEG); URINE NITRATE NEG (NEG); URINE PROTEIN 2+ (NEG); URINE UROBILINOGEN NORM (NEG)
[2017-01-07 11:50] LABS: URINE BILIRUBIN NEG (NEG); URINE BLOOD 4+ (NEG)
[2017-01-07 11:51] LABS: UWBCS1 AUWI NEG (0-5)
[2017-01-07 11:52] LABS: CULTURE INDICATED? NO; URINE BACTERIA AUWI N (NEGATIVE)
[2017-01-07] MEDS ORDERED: FERROUS SULFAT324 MG PO (13:32)
[2017-01-07] MEDS ORDERED: DELTASONE20 MG PO (13:32)
[2017-01-07] MEDS ORDERED: PLAQUENIL200 MG PO (13:33)
[2017-01-07 14:51] LABS: POC - CKMB 1.1 ng/mL (0.0-7.9); POC - TROPONIN <0.05 ng/mL (<=0.05)
[2017-01-07 17:05] LABS: HEMATOCRIT 23.4 % (35.0-45.0); HEMOGLOBIN 7.6 gm/dL (12.0-16.0)
[2017-01-07 19:14] LABS: IRON SERUM 22 ug/dL (28-170); TOTAL IRON BINDING CAPACITY 262 ug/dL (269-535); TRANSFERRIN 187 mg/dL (192-382); TRANSFERRIN SATURATION 8 % (20-50)
[2017-01-07 19:16] LABS: FOLATE (FOLIC ACID) 15.3 ng/mL (>5.8)
[2017-01-07 20:16] LABS: HEMATOCRIT 21.8 % (35.0-45.0); HEMOGLOBIN 7.1 gm/dL (12.0-16.0)
[2017-01-08 02:51] LABS: HEMATOCRIT 21.4 % (35.0-45.0); HEMOGLOBIN 7.1 gm/dL (12.0-16.0); MEAN CELL VOLUME 84.3 FL (83-96); MEAN CORPUSCULAR HEMOGLOBIN 28.2 PG (28-34); MEAN CORPUSCULAR HGB CONC 33.4 g/dL (30-36); MEAN PLATELET VOLUME 8.5 FL (6.5-11.5); RED BLOOD COUNT 2.53 X10e (3.90-5.30); WHITE BLOOD COUNT 3.6 X10e3 (4.0-10.5)
[2017-01-08 03:09] LABS: ALBUMIN SERUM 2.2 g/dL (3.5-5.0); BILIRUBIN,TOTAL 0.2 mg/dL (0.2-2.0); BUN/CREATININE RATIO 17.77; CALCIUM SERUM 6.4 mg/dL (8.4-10.2); CREATININE SERUM 0.9 mg/dL (0.6-1.4); GLOM FILT RATE Estimated 91.5 mL/min (>60); POTASSIUM 3.5 mmol/L (3.5-5.1); PROTEIN TOTAL SERUM 4.5 g/dL (6.0-8.3)
[2017-01-08 08:17] LABS: HEMATOCRIT 20.3 % (35.0-45.0)
[2017-01-08 08:30] LABS: HEMOGLOBIN 6.8 gm/dL (12.0-16.0)
[2017-01-08 14:04] LABS: HEMATOCRIT 27.7 % (35.0-45.0)
[2017-01-08 14:06] LABS: HEMOGLOBIN 9.2 gm/dL (12.0-16.0)
[2017-01-08 20:13] LABS: HEMATOCRIT 29.4 % (35.0-45.0); HEMOGLOBIN 9.7 gm/dL (12.0-16.0)
[2017-01-09 08:40] LABS: HEMOGLOBIN 10.2 gm/dL (12.0-16.0); MEAN CELL VOLUME 82.2 FL (83-96); MEAN CORPUSCULAR HGB CONC 34.1 g/dL (30-36); MEAN PLATELET VOLUME 8.1 FL (6.5-11.5); RED BLOOD COUNT 3.65 X10e (3.90-5.30); RED CELL DISTRIBUTION WIDTH 16.4 % (11.0-15.5)
[2017-01-09 09:31] LABS: ALBUMIN SERUM 2.5 g/dL (3.5-5.0); BILIRUBIN,TOTAL 0.4 mg/dL (0.2-2.0); CALCIUM SERUM 7.4 mg/dL (8.4-10.2); GLOM FILT RATE Estimated 80.5 mL/min (>60); POTASSIUM 3.8 mmol/L (3.5-5.1); PROTEIN TOTAL SERUM 5.4 g/dL (6.0-8.3)
[2017-01-09 14:13] LABS: HEMATOCRIT 28.6 % (35.0-45.0); HEMOGLOBIN 9.8 gm/dL (12.0-16.0)
[2017-01-09] MEDS ORDERED: B-121000 MC1 SUBQ (16:12)
[2017-01-09] MEDS ORDERED: ZITHROMAX500 MG PO (16:13)
[2017-01-09] MEDS ORDERED: AUGMENTIN PO (16:14)
[2017-01-11 07:17] LABS: HA AB IGM (HEPPAN) Nonreactive (()); HB CORE AB IGM (HEPPAN) Nonreactive (Nonreactive); HB S AG (HEPPAN) Nonreactive (Nonreactive); HEP C AB (HEPPAN) Nonreactive (Nonreactive); HEP C AB SIGNAL TO CUTOFF 0.07 ratio (<1.00)
== END 2017-01-09 17:23 | disposition home health service (06) | DRG 872 ==
LOC: CED 08:41 → CEDOF 13:30 → CED 13:49 → CEDOF 13:49 → C5C 16:49
PROVIDERS: Emergency Medicine; Family Medicine; Internal Medicine
PROC: 30233N1 Transfusion of Nonautologous Red Blood Cells into Peripheral Vein, Percutaneous Approach (ICD-10-PCS; principal; 2017-01-08)
DX: A41.9 Sepsis, unspecified organism (principal); E87.2 Acidosis; R18.8 Other ascites; D69.6 Thrombocytopenia, unspecified; E44.0 Moderate protein-calorie malnutrition; A04.5 Campylobacter enteritis; M32.9 Systemic lupus erythematosus, unspecified; D51.1 Vitamin B12 deficiency anemia due to selective vitamin B12 malabsorption with proteinuria; K75.9 Inflammatory liver disease, unspecified; R59.1 Generalized enlarged lymph nodes; K80.20 Calculus of gallbladder without cholecystitis without obstruction; E83.51 Hypocalcemia; I77.6 Arteritis, unspecified; N05.9 Unspecified nephritic syndrome with unspecified morphologic changes
CPT/HCPCS: 36415; 36430; 71010; 74177; 76705; 80048; 80053; 80074; 80076; 80307; 81003; 82553; 82607; 82728; 82746; 83540; 83550; 83605; 83690; 84484; 84703; 85014; 85018; 85025; 85027; 86850; 86900; 86901; 86923; 87040; 87045; 87177; 87209; 87427; 87493; 87899; 93005; 94760; 96361; 96374; 96375; 99285; J1940; J1956; J2405; J2550; J2916; J3420; P9016; Q9967